=== PATIENT | male | born 1945 | race Caucasian/White ===

== ENCOUNTER 2020-08-21 15:26 | Emergency (ER) | payer MEDICARE ==
[2020-08-21 16:52] LABS: #Basophils 0.1 10x3/uL (0.0-0.2); #Eosinphils 0.3 10x3/uL (0.0-0.5); #Monocytes 0.9 10x3/uL (0.0-1.1); %Eosinophils 3.7 % (0.0-6.0); %Monocytes 12.3 % (0.0-10.0); %Neutrophils 54.7 % (40.0-75.0); Hemoglobin 11.5 g/dL (13.5-17.5); Mean Corpuscular HGB CONC 33.6 g/dL (32.0-36.0); Mean Platelet Volume 9.1 fl (7.4-10.4); Platelet Count 214 10x3/uL (150-450); RBC Distribution Width 13.1 % (11.5-14.5); Red Blood Cell (RBC) Count 3.49 10x6/uL (4.32-5.72); White Blood Cell (WBC) Count 7.3 10x3/uL (3.5-10.5)
[2020-08-21 16:55] LABS: ALT (SGPT) 19 U/L (8-55); AST (SGOT) 23 U/L (5-34); Albumin 3.9 g/dL (3.4-4.8); Alkaline Phosphatase 77 U/L (40-110); Anion Gap 12 mmol/L (10-20); BUN (Urea Nitrogen) 28 mg/dL (8.4-25.7); Bilirubin, Total 1.5 mg/dL (0.2-1.2); Calc. Creatinine Clearance 0 mL/min (70-130); Calcium 9.4 mg/dL (7.8-10.44); Carbon Dioxide 25 mmol/L (23-31); Chloride 109 mmol/L (98-107); Globulin 3.1 g/dL (2.4-3.5); Glucose 72 mg/dL (83-110); Sodium 142 mmol/L (136-145)
[2020-08-21 20:39] LABS: Bilirubin Neg (Negative); Blood, Urine 10 (Negative); Clarity Clear (Clear); Glucose, Urine (Dipstick) Normal (Negative); Ketone, Urine Negative (Negative); Leukocyte 100 (Negative); Nitrite Negative (Negative); Protein, Urine (Dipstick) Negative (Neg-Trace); Specific Gravity, Urine 1.015 (1.002-1.036); Urobilinogen Normal mg/dL (Less than 2)
[2020-08-21 21:09] LABS: Bacteria/HPF 2+ HPF (None Seen); RBC/HPF 0-3 HPF (0-3); Renal Epithelial 0-3 HPF (None Seen); Squamous Epithelial 0-3 HPF (0-3)
== END 2020-08-21 22:42 | disposition home or self-care (01) ==
LOC: CSHERS 15:26
DX: N39.0 Urinary tract infection, site not specified (principal); R55 Syncope and collapse; K21.9 Gastro-esophageal reflux disease without esophagitis; E78.5 Hyperlipidemia, unspecified; E78.00 Pure hypercholesterolemia, unspecified; Z79.82 Long term (current) use of aspirin; Z79.01 Long term (current) use of anticoagulants; Z79.899 Other long term (current) drug therapy; M79.89 Other specified soft tissue disorders
CPT/HCPCS: 36415; 70450; 71045; 80053; 81003; 81015; 83735; 84484; 85025; 85379; 93005

== ENCOUNTER 2022-09-22 12:17 | Inpatient (IN) | payer MEDICARE, OTHER ==
[2022-09-22 13:24] LABS: #Basophils 0.1 10x3/uL (0.0-0.2); #Eosinphils 0.2 10x3/uL (0.0-0.5); #Monocytes 1.1 10x3/uL (0.0-1.1); #Neutrophils 7.1 10x3/uL (1.5-8.4); %Basophils 0.6 % (0.0-2.0); %Eosinophils 1.4 % (0.0-6.0); %Lymphocytes 24.8 % (18.0-47.0); %Monocytes 9.8 % (0.0-10.0); Hemoglobin 12.8 g/dL (13.5-17.5); Mean Corpuscular Hemoglobin 31.1 pg (27.0-33.0); Mean Corpuscular Volume 91.5 fl (81.2-95.1); Mean Platelet Volume 9.3 fl (7.4-10.4); Platelet Count 232 10x3/uL (150-450); RBC Distribution Width 14.4 % (11.5-14.5); Red Blood Cell (RBC) Count 4.11 10x6/uL (4.32-5.72); White Blood Cell (WBC) Count 11.2 10x3/uL (3.5-10.5)
[2022-09-22 13:34] LABS: INR-International Normal Ratio 1.2; PTT 27.5 sec (22.0-33.0); Prothrombin Time 12.8 sec (9.5-12.1)
[2022-09-22 13:38] LABS: ALT (SGPT) 13 U/L (8-55); AST (SGOT) 18 U/L (5-34); Albumin 4.2 g/dL (3.4-4.8); Alkaline Phosphatase 77 U/L (40-110); Anion Gap 16 mmol/L (10-20); BUN (Urea Nitrogen) 30 mg/dL (8.4-25.7); Bilirubin, Total 1.7 mg/dL (0.2-1.2); Calc. Creatinine Clearance 0 mL/min (70-130); Calcium 10.2 mg/dL (7.8-10.44); Carbon Dioxide 19 mmol/L (23-31); Chloride 111 mmol/L (98-107); Estimated GFR 41; Globulin 2.8 g/dL (2.4-3.5); Glucose 89 mg/dL (83-110); Potassium 4.1 mmol/L (3.5-5.1); Sodium 142 mmol/L (136-145)
[2022-09-22] MEDS ORDERED: Calcium Carbonate 500 MG ChewTAB PO PRN (18:22)
[2022-09-22] MEDS ORDERED: Acetaminophen 325 MG TAB PO PRN (18:22)
[2022-09-22] MEDS ORDERED: Senokot S 8.6-50 MG TAB PO PRN (18:22)
[2022-09-22] MEDS ORDERED: Ondansetron PF 4 MG/2 ML Vial IVP PRN (18:22)
[2022-09-22] MEDS ORDERED: Sodium Chloride 0.9% 1,000 ML IV SCH (18:30)
[2022-09-22 20:27] LABS: Troponin I 0.019 ng/mL (< 0.028)
[2022-09-22] MEDS ORDERED: Famotidine 20 MG TAB PO SCH (21:00)
[2022-09-22] MEDS ORDERED: Apixaban 5 MG TAB ONE (21:28)
[2022-09-22 22:58] LABS: Troponin I 0.014 ng/mL (< 0.028)
[2022-09-22 23:08] VITALS: BMI 37.3
[2022-09-22] MEDS: Finasteride 5 MG TAB PO SCH (23:46)
[2022-09-22] MEDS: Apixaban 2.5 MG TAB PO SCH (23:46)
[2022-09-22] MEDS: Atorvastatin Calcium 20 MG TAB PO SCH (23:46)
[2022-09-23] MEDS ORDERED: FLU VACC QS2022-23(65YR UP)/PF 240 MCG/0.7 ML SYRINGE IM ONE (01:30)
[2022-09-23 06:05] LABS: #Basophils 0.1 10x3/uL (0.0-0.2); #Eosinphils 0.4 10x3/uL (0.0-0.5); #Neutrophils 4.5 10x3/uL (1.5-8.4); %Basophils 0.9 % (0.0-2.0); %Eosinophils 4.7 % (0.0-6.0); %Lymphocytes 30.6 % (18.0-47.0); %Monocytes 11.1 % (0.0-10.0); %Neutrophils 52.3 % (40.0-75.0); Hemoglobin 12.2 g/dL (13.5-17.5); Mean Corpuscular HGB CONC 33.3 g/dL (32.0-36.0); Mean Corpuscular Hemoglobin 31.1 pg (27.0-33.0); Mean Corpuscular Volume 93.4 fl (81.2-95.1); Mean Platelet Volume 9.5 fl (7.4-10.4); Platelet Count 209 10x3/uL (150-450); RBC Distribution Width 14.6 % (11.5-14.5); Red Blood Cell (RBC) Count 3.92 10x6/uL (4.32-5.72); White Blood Cell (WBC) Count 8.6 10x3/uL (3.5-10.5)
[2022-09-23 06:25] LABS: Anion Gap 14 mmol/L (10-20); BUN (Urea Nitrogen) 28 mg/dL (8.4-25.7); Calc. Creatinine Clearance 49 mL/min (70-130); Calcium 9.4 mg/dL (7.8-10.44); Carbon Dioxide 23 mmol/L (23-31); Cardiac Risk 2.6 (Less than 4.5); Chloride 111 mmol/L (98-107); Cholesterol 97 mg/dl (< 200 Desired); Estimated GFR 44; Glucose 93 mg/dL (83-110); HDL Cholesterol 38 mg/dL (>60 Neg Risk); LDL Cholesterol, Calculated 43 mg/dL; Potassium 4.8 mmol/L (3.5-5.1); Sodium 143 mmol/L (136-145); Triglycerides 80 mg/dL (Less than 150)
[2022-09-23] MEDS: Citalopram 20 MG TAB PO SCH (08:51)
[2022-09-23] MEDS: Apixaban 2.5 MG TAB PO SCH ×2 (08:51→21:08)
[2022-09-23] MEDS: Aspirin Chewable 81 MG TAB PO SCH (08:51)
[2022-09-23] MEDS ORDERED: Aspirin 81 mg Enteric Coated Tablet PO SCH (09:00)
[2022-09-23] MEDS ORDERED: Fludrocortisone Acetate 0.1 MG TAB PO SCH (15:00)
[2022-09-23] MEDS: Finasteride 5 MG TAB PO SCH (21:08)
[2022-09-23] MEDS: Atorvastatin Calcium 20 MG TAB PO SCH (21:08)
[2022-09-24] MEDS: Citalopram 20 MG TAB PO SCH (08:58)
[2022-09-24] MEDS: Apixaban 2.5 MG TAB PO SCH ×2 (08:58→21:32)
[2022-09-24] MEDS: Fludrocortisone Acetate 0.1 MG TAB PO SCH (08:58)
[2022-09-24] MEDS: Aspirin Chewable 81 MG TAB PO SCH (08:58)
[2022-09-24] MEDS ORDERED: Sodium Chloride 0.9% 1,000 ML IV SCH (17:15)
[2022-09-24 19:45] LABS: Actual Bicarbonate (HCO3v) 20 mEq/L (22-28); Base Excess -4.9 mEq/L (-2 - +2); Calcium, Ionized (venous) 1.18 mmol/L (1.16-1.32); Chloride (VBG) 108 mmol/L (98-106); Critical Notified By: CP.PH; Hemoglobin (Hb) 13.1 g/dL (12.6-17.4); Potassium (VBG) 4.24 mmol/L (3.70-5.30); Puncture Site Other Site; RapidComm Collect By LAB.YY; Sodium 138.6 mmol/L (133-146); pH (venous) 7.35 (7.32-7.43)
[2022-09-24] MEDS: Atorvastatin Calcium 20 MG TAB PO SCH (21:31)
[2022-09-24] MEDS: Finasteride 5 MG TAB PO SCH (21:32)
[2022-09-25 05:26] LABS: #Basophils 0.1 10x3/uL (0.0-0.2); #Eosinphils 0.5 10x3/uL (0.0-0.5); #Neutrophils 6.8 10x3/uL (1.5-8.4); %Basophils 0.7 % (0.0-2.0); %Eosinophils 4.9 % (0.0-6.0); %Lymphocytes 21.4 % (18.0-47.0); %Monocytes 9.5 % (0.0-10.0); %Neutrophils 63.2 % (40.0-75.0); Mean Corpuscular Hemoglobin 30.6 pg (27.0-33.0); Mean Corpuscular Volume 92.9 fl (81.2-95.1); Mean Platelet Volume 9.4 fl (7.4-10.4); Platelet Count 207 10x3/uL (150-450); RBC Distribution Width 14.5 % (11.5-14.5); Red Blood Cell (RBC) Count 3.92 10x6/uL (4.32-5.72); White Blood Cell (WBC) Count 10.7 10x3/uL (3.5-10.5)
[2022-09-25 05:38] LABS: Anion Gap 12 mmol/L (10-20); BUN (Urea Nitrogen) 26 mg/dL (8.4-25.7); Calc. Creatinine Clearance 57 mL/min (70-130); Calcium 9.2 mg/dL (7.8-10.44); Carbon Dioxide 24 mmol/L (23-31); Chloride 110 mmol/L (98-107); Estimated GFR 52; Glucose 92 mg/dL (83-110); Potassium 4.5 mmol/L (3.5-5.1); Sodium 141 mmol/L (136-145)
[2022-09-25] MEDS: Apixaban 2.5 MG TAB PO SCH ×2 (08:41→21:03)
[2022-09-25] MEDS: Aspirin Chewable 81 MG TAB PO SCH (08:41)
[2022-09-25] MEDS: Fludrocortisone Acetate 0.1 MG TAB PO SCH (08:41)
[2022-09-25] MEDS ORDERED: Fludrocortisone Acetate 0.1 MG TAB PO SCH (13:11)
[2022-09-25] MEDS: Sodium Chloride 0.9% 1,000 ML IV SCH (18:33)
[2022-09-25] MEDS: Finasteride 5 MG TAB PO SCH (21:03)
[2022-09-25] MEDS: Atorvastatin Calcium 20 MG TAB PO SCH (21:03)
[2022-09-26 06:28] LABS: #Basophils 0.1 10x3/uL (0.0-0.2); #Eosinphils 0.5 10x3/uL (0.0-0.5); #Monocytes 0.9 10x3/uL (0.0-1.1); %Basophils 0.9 % (0.0-2.0); %Eosinophils 6.1 % (0.0-6.0); %Lymphocytes 23.6 % (18.0-47.0); %Monocytes 10.2 % (0.0-10.0); Mean Corpuscular HGB CONC 33.6 g/dL (32.0-36.0); Mean Corpuscular Hemoglobin 30.9 pg (27.0-33.0); Mean Platelet Volume 9.4 fl (7.4-10.4); Platelet Count 205 10x3/uL (150-450); RBC Distribution Width 14.3 % (11.5-14.5); Red Blood Cell (RBC) Count 3.88 10x6/uL (4.32-5.72); White Blood Cell (WBC) Count 8.5 10x3/uL (3.5-10.5)
[2022-09-26 06:34] LABS: Anion Gap 13 mmol/L (10-20); BUN (Urea Nitrogen) 25 mg/dL (8.4-25.7); Calc. Creatinine Clearance 59 mL/min (70-130); Calcium 9.3 mg/dL (7.8-10.44); Carbon Dioxide 25 mmol/L (23-31); Chloride 108 mmol/L (98-107); Estimated GFR 54; Glucose 95 mg/dL (83-110); Potassium 4.4 mmol/L (3.5-5.1); Sodium 142 mmol/L (136-145)
[2022-09-26] MEDS: Citalopram 20 MG TAB PO SCH (08:29)
[2022-09-26] MEDS: Aspirin Chewable 81 MG TAB PO SCH (08:29)
[2022-09-26] MEDS: Apixaban 2.5 MG TAB PO SCH ×2 (08:29→20:53)
[2022-09-26] MEDS: Sodium Chloride 0.9% 1,000 ML IV SCH (08:30)
[2022-09-26] MEDS ORDERED: Fludrocortisone Acetate 0.1 MG TAB PO SCH (09:00)
[2022-09-26] MEDS: Hydrocortisone Sod Succ/PF 100 mg/2 ml Vial IVP SCH ×2 (14:54→18:22)
[2022-09-26] MEDS ORDERED: Aspirin Chewable 81 MG TAB ONE (20:07)
[2022-09-26] MEDS ORDERED: Lactated Ringer's 500 ML IV SCH ×2 (20:15→21:00)
[2022-09-26] MEDS ORDERED: Aspirin Chewable 81 MG TAB PO SCH (20:15)
[2022-09-26] MEDS: Atorvastatin Calcium 20 MG TAB PO SCH (20:53)
[2022-09-26] MEDS: Finasteride 5 MG TAB PO SCH (20:53)
[2022-09-27] MEDS: Sodium Chloride 0.9% 1,000 ML IV SCH ×2 (01:10→12:58)
[2022-09-27] MEDS: Hydrocortisone Sod Succ/PF 100 mg/2 ml Vial IVP SCH ×4 (02:41→17:13)
[2022-09-27 06:08] LABS: Anion Gap 14 mmol/L (10-20); BUN (Urea Nitrogen) 25 mg/dL (8.4-25.7); Calc. Creatinine Clearance 63 mL/min (70-130); Calcium 9.3 mg/dL (7.8-10.44); Carbon Dioxide 21 mmol/L (23-31); Chloride 111 mmol/L (98-107); Estimated GFR 59; Glucose 143 mg/dL (83-110); Sodium 142 mmol/L (136-145)
[2022-09-27 06:19] LABS: #Monocytes 0.7 10x3/uL (0.0-1.1); #Neutrophils 11.4 10x3/uL (1.5-8.4); %Basophils 0.2 % (0.0-2.0); %Eosinophils 0.1 % (0.0-6.0); %Lymphocytes 11.1 % (18.0-47.0); %Monocytes 4.9 % (0.0-10.0); %Neutrophils 83.4 % (40.0-75.0); Mean Corpuscular HGB CONC 33.9 g/dL (32.0-36.0); Mean Corpuscular Hemoglobin 31.2 pg (27.0-33.0); Mean Corpuscular Volume 91.9 fl (81.2-95.1); Mean Platelet Volume 9.7 fl (7.4-10.4); Platelet Count 233 10x3/uL (150-450); RBC Distribution Width 14.2 % (11.5-14.5); Red Blood Cell (RBC) Count 3.85 10x6/uL (4.32-5.72); White Blood Cell (WBC) Count 13.7 10x3/uL (3.5-10.5)
[2022-09-27] MEDS ORDERED: Fludrocortisone Acetate 0.1 MG TAB PO SCH (09:00)
[2022-09-27] MEDS: Aspirin Chewable 81 MG TAB PO SCH (09:49)
[2022-09-27] MEDS: Citalopram 20 MG TAB PO SCH (09:49)
[2022-09-27] MEDS: Apixaban 2.5 MG TAB PO SCH (09:49)
[2022-09-27] MEDS ORDERED: Iopamidol 370 76% 100 ML VIAL ONE (15:56)
[2022-09-27] MEDS: Apixaban 5 MG TAB PO SCH (20:34)
[2022-09-27] MEDS: Atorvastatin Calcium 20 MG TAB PO SCH (20:35)
[2022-09-27] MEDS: Finasteride 5 MG TAB PO SCH (20:35)
[2022-09-28] MEDS: Hydrocortisone Sod Succ/PF 100 mg/2 ml Vial IVP SCH ×2 (00:24→05:54)
[2022-09-28] MEDS: Sodium Chloride 0.9% 1,000 ML IV SCH (02:24)
[2022-09-28 05:37] LABS: #Monocytes 0.7 10x3/uL (0.0-1.1); #Neutrophils 15.7 10x3/uL (1.5-8.4); %Basophils 0.1 % (0.0-2.0); %Lymphocytes 7.8 % (18.0-47.0); %Monocytes 4.1 % (0.0-10.0); %Neutrophils 87.6 % (40.0-75.0); Hemoglobin 11.8 g/dL (13.5-17.5); Mean Corpuscular HGB CONC 33.4 g/dL (32.0-36.0); Mean Corpuscular Volume 92.7 fl (81.2-95.1); Mean Platelet Volume 9.8 fl (7.4-10.4); Platelet Count 240 10x3/uL (150-450); RBC Distribution Width 14.6 % (11.5-14.5); Red Blood Cell (RBC) Count 3.81 10x6/uL (4.32-5.72); White Blood Cell (WBC) Count 17.9 10x3/uL (3.5-10.5)
[2022-09-28 05:49] LABS: ALT (SGPT) 11 U/L (8-55); AST (SGOT) 13 U/L (5-34); Albumin 3.5 g/dL (3.4-4.8); Alkaline Phosphatase 65 U/L (40-110); Anion Gap 15 mmol/L (10-20); BUN (Urea Nitrogen) 31 mg/dL (8.4-25.7); Bilirubin, Total 0.7 mg/dL (0.2-1.2); Calc. Creatinine Clearance 60 mL/min (70-130); Calcium 8.9 mg/dL (7.8-10.44); Carbon Dioxide 22 mmol/L (23-31); Chloride 111 mmol/L (98-107); Estimated GFR 55; Globulin 2.9 g/dL (2.4-3.5); Glucose 151 mg/dL (83-110); Protein, Total 6.4 g/dL (5.8-8.1); Sodium 144 mmol/L (136-145)
[2022-09-28] MEDS: Apixaban 5 MG TAB PO SCH (08:43)
[2022-09-28] MEDS: Aspirin Chewable 81 MG TAB PO SCH (08:43)
[2022-09-28] MEDS: Citalopram 20 MG TAB PO SCH (08:43)
[2022-09-28 12:32] VITALS: BP 165/86; TEMP 98.6
[2022-09-29] MEDS ORDERED: Fludrocortisone Acetate 0.1 MG TAB PO SCH (09:00)
== END 2022-09-28 15:41 | disposition home or self-care (01) | DRG 312 ==
LOC: CSHERS 12:17 → CSHERHOLD 18:20 → CSHTELE 22:50 → OBSVTOIN 09-24 18:18
PROVIDERS: ADMIT Family Medicine; ATTEND Internal Medicine
PROC: 5A09357 Assistance with Respiratory Ventilation, Less than 24 Consecutive Hours, Continuous Positive Airway Pressure (ICD-10-PCS; principal; 2022-09-24)
DX: I95.1 Orthostatic hypotension (principal); I50.22 Chronic systolic (congestive) heart failure; I48.19 Other persistent atrial fibrillation; N17.9 Acute kidney failure, unspecified; I47.20 Ventricular tachycardia, unspecified; I25.10 Atherosclerotic heart disease of native coronary artery without angina pectoris; K21.9 Gastro-esophageal reflux disease without esophagitis; E78.5 Hyperlipidemia, unspecified; F32.A Depression, unspecified; G47.33 Obstructive sleep apnea (adult) (pediatric); N18.30 Chronic kidney disease, stage 3 unspecified; D63.1 Anemia in chronic kidney disease; E66.9 Obesity, unspecified; Z88.8 Allergy status to other drugs, medicaments and biological substances; Z79.82 Long term (current) use of aspirin; Z79.01 Long term (current) use of anticoagulants; Z79.899 Other long term (current) drug therapy; Z95.0 Presence of cardiac pacemaker; Z86.73 Personal history of transient ischemic attack (TIA), and cerebral infarction without residual deficits; Z95.2 Presence of prosthetic heart valve; Z90.49 Acquired absence of other specified parts of digestive tract; Z98.890 Other specified postprocedural states; Z68.37 Body mass index [BMI] 37.0-37.9, adult
CPT/HCPCS: 36415; 36416; 70450; 70496; 70551; 71045; 80048; 80053; 80061; 82533; 82805; 83735; 84484; 85025; 85610; 85730; 93005; 93306; 93880; 94660; 94760; G0378; J1720; J7050; J7120; Q9967